=== PATIENT | male | born 1975 | race American Indian/Alaskan Native ===

== ENCOUNTER 2016-10-26 03:33 | Emergency (ER) | payer OTHER ==
[2016-10-26 03:33] VITALS: BMI 33.7
--- NOTE | 2016-10-26 04:15 | C.PDOC ---
History Of Present Illness Patient is a 41 year old male who presents to the ER with a complaint of body aches, nasal congestion, dry cough, subjective fever and headache since this morning. Patient has not tried taking OTC medication and denies recent travel or sick contact. Time Seen by Provider: 10/26/16 03:49 Chief Complaint (Nursing): Flu-like Symptoms History Per: Patient History/Exam Limitations: no limitations Onset/Duration Of Symptoms: Hrs Current Symptoms Are (Timing): Still Present Location Of Pain: Diffuse Myalgias, Headache Associated Symptoms: Fever (Subjective), Cough, Myalgias, Nasal Congestion, Other (Headache). denies: Sputum Recent travel outside of the [place]: No Past Medical History Reviewed: Historical Data, Nursing Documentation, Vital Signs Vital Signs: Last Vital Signs Temp 99.1 F 10/26/16 04:51 Pulse 81 10/26/16 04:51 Resp 20 10/26/16 04:51 BP 112/74 10/26/16 04:51 Pulse Ox 97 10/26/16 04:51 - Medical History PMH: No Chronic Diseases Surgical History: No Surg Hx Family History: States: Unknown Family Hx - Social History Hx Alcohol Use: No Hx Substance Use: No - Immunization History Hx Tetanus Toxoid Vaccination: No Hx Influenza Vaccination: No Hx Pneumococcal Vaccination: No Review Of Systems Constitutional: Positive for: Fever (Subjective) ENT: Positive for: Nose Congestion Respiratory: Positive for: Cough. Negative for: Sputum Musculoskeletal: Positive for: Other (Body aches) Neurological: Positive for: Headache Physical Exam - Physical Exam Appears: Non-toxic, No Acute Distress Skin: Normal Color, Warm, Dry Head: Atraumatic, Normacephalic Ear(s): Bilateral: Normal Nose: Discharge, Other (Enlarged nasal turbinates) Oral Mucosa: Moist Chest: Symmetrical, No Tenderness Cardiovascular: Rhythm Regular, No Murmur Respiratory: Normal Breath Sounds, No Rales, No Rhonchi, No Wheezing Gastrointestinal/Abdominal: Soft, No Tenderness Neurological/Psych: Oriented x3, Normal Speech, Normal Cognition ED Course And Treatment O2 Sat by Pulse Oximetry: 98 (room air) Pulse Ox Interpretation: Normal Progress Note: Motrin administered. Patient feel better after medication, will discharge home. Disposition Counseled Patient/Family Regarding: Diagnosis, Need For Followup, Rx Given - Disposition Referrals: private MD, PMD [Other] Disposition: HOME/ ROUTINE Disposition Time: 04:11 Condition: STABLE Additional Instructions: INCREASE PO FLUIDS TAKE MEDS DIRECTED RETURN TO ER IF WORSE Prescriptions: Benzonatate [Tessalon Perles] 100 mg PO TID #20 sgl Cetirizine HCl [Zyrtec] 10 mg PO DAILY #20 capsule Ibuprofen [Motrin Tab] 800 mg PO QID #24 tab Mometasone Furoate [Nasonex] 2 spray NS DAILY #1 bottle Instructions: Upper Respiratory Infection (ED) Forms: Work Excuse - Clinical Impression Clinical Impression: Influenza-like illness, Upper respiratory infection - Scribe Statement The provider has reviewed the documentation as recorded by the Scribe Cristi Richter All medical record entries made by the Scribe were at my direction and personally dictated by me. I have reviewed the chart and agree that the record accurately reflects my personal performance of the history, physical exam, medical decision making, and the department course for this patient. I have also personally directed, reviewed, and agree with the discharge instructions and disposition.
[2016-10-26 04:52] VITALS: BP 112/74; PULSE 81; RESP 20; TEMP 99.1
[2016-10-26 05:21] VITALS: O2SAT 98
== END 2016-10-26 04:52 | disposition home or self-care (01) ==
LOC: C.ER 03:33
DX: J11.1 Influenza due to unidentified influenza virus with other respiratory manifestations (principal)